=== PATIENT | female | born 1955 | race Caucasian/White ===

== ENCOUNTER 2016-04-16 04:26 | Inpatient (IN) | payer OTHER ==
[~2016-04-16] VITALS: Ht 165.1 cm; Wt 106.6 kg
[~2016-04-16 04:26] MED LIST: PROTONIX40 M3 PO; TOPAMAX100 M1 PO; TRIAMTERENE-HC1 EAC2 PO; VENLAFAXINE HC225 MG PO
--- NOTE | 2016-04-16 10:20 | Admission Core Measures ---
Admission Meds I reviewed the following Meds: Current Medications Sig/Caroline Start time Last Medication Dose Stop Time Status Admin Hydrochlorothiazide 50 MG DAILY 04/17 1000 CAN (Hydrodiuril) Topiramate 100 MG DAILY 04/17 1000 AC (Topamax) Venlafaxine HCl 225 MG 0800 04/17 0800 AC (Effexor Xr) Acute Coronary Syndrome Inclusion Criteria ACS Diagnosis No Inpatient Core Measures LDL Reminder: If No, please order W/I first 24hr of stay Congestive Heart Failure Inclusion Criteria CHF Diagnosis No Cerebrovascular accident Inclusion Criteria CVA/TIA Diagnosis No Inpatient Core Measures Bedside Swallow Eval Reminder: If BSE failed, place ST order Antithrombotic Reminder: Order Antithrombotic Medication by end of day 2 Antithrombotic Reminder: Document Reason Antithrombotic Not ordered by end of day 2 AFIB/Flutter Reminder: If Present, add to problem list AFIB/Flutter Reminder: Order Anticoag Medication for pts with AFIB/Flutter Atherosclerosis Reminder: If Present, add to problem list LDL Reminder: If No, please order W/I first 24hr of stay PT Order Reminder: If No, please order Venous thromboembolism Inpatient Core Measures VTE Risk Factors: Age > 40, Surgery VTE Prophylaxis Ordered Inpt Mech & Pharm No Mech VTE prophylaxis d/t No contraindications No VTE Pharm Prophylaxis d/t No contraindications Inclusion Criteria - Per Current guidelines, there needs to be overlap - treatment for the first 5 days of Warfarin therapy. - Parenteral Anticoagulation (IV or SC) needs to be - given along with Warfarin therapy. VTE Diagnosis No VTE Type NONE VTE Confirmed by (Test) NONE Problem List As ranked by this Provider includes Assessment & Plan 1. S/P total knee replacement HOME MEDS Home Med List Pantoprazole Sodium (Protonix) 40 MG TABLET.DR 1 TAB PO DAILY GI (Reported) Topiramate (Topamax) 100 MG TABLET 1 TAB PO DAILY MIGRAINES (Reported) Triamterene/Hydrochlorothiazid (Triamterene-Hctz 75-50 MG Tab) 75 MG-50 MG TABLET 1 TAB PO DAILY BP (Reported) Venlafaxine HCl (Venlafaxine HCl ER) 225 MG TAB.ER.24 1 TAB PO DAILY DEPRESSION (Reported)
[2016-04-16] MEDS ORDERED: COLACE100 M1 PO (10:26)
[2016-04-16] MEDS ORDERED: ASPIRIN EC325 M2 PO (10:26)
[2016-04-16] MEDS ORDERED: DILAUDID2 M1 PO (10:26)
[2016-04-16] MEDS ORDERED: MIRALAX17 G1 PO (10:26)
[2016-04-16] MEDS ORDERED: MS CONTIN15 M2 PO (10:26)
[2016-04-16] MEDS ORDERED: COUMADIN5 M2 PO (10:26)
--- NOTE | 2016-04-16 10:29 | Patient Discharge Instructions ---
Discharge Instructions General Discharge Information You were seen/treated for: knee pain You had these procedures: total knee replacement Watch for these problems: See pre printed sheet Do not soak the wound: Yes Other wound care: Clean, dry dressing change See pre printed sheet Diet Continue normal diet: Yes Activity Activity Self Limited: Yes Activity Limited to: Weight bear as tolerated Acute Coronary Syndrome Inclusion Criteria At DC or during hospital stay patient has or had the following: ACS DIAGNOSIS No Discharge Core Measures Meds if any: Prescribed or Continued at Discharge Meds if any: NOT Prescribed or Continued at Discharge Congestive Heart Failure Inclusion Criteria At DC or during hospital stay patient has or had the following: CHF DIAGNOSIS No Discharge Core Measures Meds if any: Prescribed or Continued at Discharge Meds if any: NOT Prescribed or Continued at Discharge Cerebrovascular accident Inclusion Criteria At DC or during hospital stay patient has or had the following: CVA/TIA Diagnosis No Discharge Core Measures Meds if any: Prescribed or Continued at Discharge Meds if any: NOT Prescribed or Continued at Discharge Venous thromboembolism Inclusion Criteria VTE Diagnosis No VTE Type NONE VTE Confirmed by (Test) NONE Discharge Core Measures - Per Current guidelines, there needs to be overlap - treatment for the first 5 days of Warfarin therapy. - If discharged on Warfarin prior to 5 days of - overlap therapy, the patient will need to be - assessed for post discharge needs including - *Post discharge parental anticoagulation - *Warfarin and/or parental anticoagulation education - *Follow up date to check INR post discharge At least 5 days overlap therapy as Inpatient No Meds if any: Prescribed or Continued at Discharge Note: Overlap Therapy is Warfarin and Anticoagulant Meds if any: NOT Prescribed or Continued at Discharge
--- NOTE | 2016-04-16 10:35 | Surgical Discharge Summary ---
Visit Information Visit Dates Admission Date: 04/16/16 Discharge Date: 04/18/16 History of Present Illness Chief Complaint: Knee pain Surgical History Pertinent Surgical History: non-contributory Review of Systems: See H and P Hospital Course Course Attending Physician: JJ JANSEN MD Primary Care Physician: TORY SAM,[facility] Course: Pt underwent L TKR by Dr Jansen on 04/16/16, she tolerated the procedure well and was brought to recovery in stable condition. Over the course of her stay, her garcía catheter was removed and she was voiding spontaneously, she was able to tolerated a regular diet, her pain was well controlled on oral medication and she was seen by Physical therapy. She was able to ambulate with PT - WBAT and was deemed stable for discharge. She was begun on coumadin on the day of surgery for DVT prophylaxis. She was also on an aspirin bridge 325mg po bid for one week while on coumadin. Her INR was increasing appropriately and her INR will be monitored as an outpatient - goal 2-3. Allergies: Coded Allergies: clarithromycin (From BIAXIN) (Intermediate, ITCH 04/11/16) Significant Procedures: L TKR - see op report Disposition Summary Disposition Principal Diagnosis: DJD Additional Diagnosis: depression, history of PE, HTN, migraines Discharge Disposition: home health services Discharge Instructions General Discharge Information Code Status: Full Code Patient's Diet: regular Patient's Activity: WBAT Follow-Up Instructions/Appts: Keep scheduled visit with Dr Jansen, call sooner if needed FU with PCP within 2 weeks, call for appt Medications at Discharge Discharge Medications: Continue taking these medications: Triamterene/Hydrochlorothiazid (Triamterene-Hctz 75-50 MG Tab) 75 MG-50 MG TABLET 1 Tablet ORAL DAILY Comments: DOCUMENTED PER CMR DURING PRE-SX INTERVIEW Pantoprazole Sodium (Protonix) 40 MG TABLET. 1 Tablet ORAL DAILY Comments: DOCUMENTED PER CMR DURING PRE-SX INTERVIEW Topiramate (Topamax) 100 MG TABLET 1 Tablet ORAL DAILY Comments: DOCUMENTED PER CMR DURING PRE-SX INTERVIEW Venlafaxine HCl (Venlafaxine HCl ER) 225 MG TAB.ER.24 1 Tablet ORAL DAILY Comments: DOCUMENTED PER CMR DURING PRE-SX INTERVIEW Start taking the following new medications: Aspirin (Ecotrin*) 325 MG TABLET. 1 Tablet ORAL TWICE DAILY Qty = 10 No Refills Instructions: TO BE TAKEN ALONG WITH COUMADIN FOR A TOTAL OF ONE WEEK AFTER SURGERY Docusate Sodium (Colace) 100 MG CAPSULE 1 Capsule ORAL TWICE DAILY Qty = 14 No Refills Polyethylene Glycol 3350 (Miralax) 17 GRAM POWD.PACK 1 Packet ORAL DAILY Qty = 7 No Refills Instructions: dissolve in water Hydromorphone HCl (Dilaudid) 2 MG TABLET 1-2 Tablet ORAL EVERY 4 HOURS NEEDED as needed for PAIN Qty = 36 No Refills Morphine Sulfate (Ms Contin) 15 MG TABLET.ER 1 Tablet ORAL TWICE DAILY Qty = 12 No Refills Warfarin Sodium (Coumadin) 5 MG TABLET 1 Tablet ORAL DAILY Qty = 30 No Refills Instructions: To be dosed according to INR. INR twice weekly until stable. Goal INR 2-3. Results to Dr Jansen office Copies To: TORY SAM,LES; INDERJIT SAM,JJ
--- NOTE | 2016-04-16 14:31 | Operative Report ---
Operative/Inv Procedure Report Surgery Date: 04/16/16 Name of Procedure: Left total knee replacement Pre-Operative Diagnosis: Primary left knee DJD Post-Operative Diagnosis: Same Estimated Blood Loss: 50ml to 100ml Surgeon/Astronomy Professor: INDERJIT SAM,JJ Coronel Anesthesia: block Operative/Procedure Note Note: Description of Procedure: The patient was taken to the operating room and positively identified. After induction of spinal anesthesia and administration of appropriate pre-operative antibiotics, the patient was positioned supine on the operating room table and all bony prominences were well padded. A well-padded pneumatic tourniquet was placed on the left upper thigh. After performing a surgical timeout, the left lower extremity was prepped and draped in the usual sterile fashion. After exsanguination with Esmarch the tourniquet was inflated to 250mm of mercury. A standard medial parapatellar approach was made to the knee. This was carried down through skin and subcutaneous tissue to the level of the fascia. Meticulous hemostasis was maintained with Bovie electrocautery. The extensor mechanism and patellar retinaculum were opened sharply and the patella was everted. The infrapatellar fat was resected in order to improve exposure. Osteophytes were trimmed from the patella and femoral condyles and the patella was re-everted and tucked laterally. A medial release was performed and the cruciate ligaments were resected. The tibia was then subluxed anteriorly. Utilizing the appropriate extra-medullary guide, the proximal tibia was trimmed perpendicular to the long axis of the tibial shaft. Attention was then turned to the femur. After opening the medullary canal, the distal femoral cut was made in 6 degrees of valgus utilizing the appropriate intra-medullary guide. The extension gap was checked and found to be appropriate. The femur was then sized and the remainder of the femoral cuts were made with a size 4 4-in-1 femoral cutting guide. The flexion gap was checked and found to be symmetric and appropriate. The knee was then trialed with a size 4 femoral component, a size 5 tibial component and a size 11 mm polyethylene insert. The patella was trimmed to accept an A 32 patella. This yielded excellent range of motion, stability and patellar tracking. All trial components were removed and the knee was copiously irrigated with sterile saline. All components were cemented into place with [place] Simplex cement. All the components were of the [place] Triathlon knee system of the above stated sizes. The knee was again irrigated after cementation. The extensor mechanism and patellar retinaculum were repaired using interrupted #1 vicryl suture. The skin was re-approximated with 2-0 vicryl and closed with ricco. A sterile dressing was applied, the tourniquet was deflated, the patient was awakened and taken to the recovery room in satisfactory condition.
--- NOTE | 2016-04-16 15:00 | NUR ---
PATIENT ARRIVED TO FLOOR VIA STRETCHER A/OX3; RA; NO COMPLAINTS OF PAIN OR NAUSEA; DRESSING TO L KNEE C/D/I; ON Q PUMP IN PLACE TO L ADDUCTOR CANAL; VITALS STABLE (SEE INTERVENTION); WILKINS IN PLACE DRAINING CLEAR YELLOW URINE; IVF PER ORDER; ALPS IN PLACE; SPOUSE AT BEDSIDE; BELONINGS BAGS X 2 PLACED IN CABINET UNDER TV; PATIENT REQUESTING GRILLED CHEESE FOR LUNCH WHICH WAS ORDERED; PATIENT ORIENTED TO ROOM AND CALL YADAV; REPORT GIVEN TO ONCOMING VALERIE BREWSTER;
--- NOTE | 2016-04-16 15:26 | PN- Orthopedic ---
Subjective Subjective: The patient was seen this afternoon postoperatively. She reports her pain is under adequate control and had no other complaints at the current time. She denied any chest pain or difficulty breathing and is eager to work with physical therapy. Objective Vital Signs and I&Os Most recent vital signs: Blood pressure 160/70, pulse 60, temperature 97.9, O2 sat drainage 98% on room air. I's and O's: 2000 ML's in of lactated Ringer's/340 ML's out of urine via Lundberg catheter/EBL less then 50ml Physical Exam: Gen.: Alert and in no obvious distress Skin: Warm and dry Cardiac: S1 and S2 regular Pulmonary: Bilateral breath sounds are equal and decreased at bases Extremities: Bilateral lower extremities are warm without calf tenderness or significant edema. Gross motor and sensory were intact. Left lower extremity surgical dressing was clean, dry, and intact. There was an On-Q pain pump [address] Assessment/Plan Assessment/Plan Assessment: 60-year-old female status post left total knee arthroplasty. Postoperatively the patient is progressing as expected and her pain is under adequate control. Plan: Out of bed with physical therapy patient is weightbearing as tolerated Patient will be started on a aspirin to Coumadin bridge starting 2 nights given history of PE in the past Continue current pain regiment 2 doses of prophylactic postoperative antibiotics GI and DVT prophylaxis Follow-up morning laboratory studies Resume home indications Core Measures/Miscellaneous Venous Thromboembolism VTE Risk Factors: Age > 40, Obesity, Previous VTE, Surgery VTE Contraindications: No Contraindications VTE Prophylaxis Ordered Inpt: Mech & Pharm VTE Diagnosis: No VTE Type: NONE VTE Confirmed by (Test): NONE Beta Socorro Is Beta Socorro a Home Med? No Antibiotics Is Patient on Antibiotics? Yes If Yes: prophylaxis
[2016-04-16 15:32] VITALS: BP 146/70
[2016-04-16 23:45] VITALS: BP 170/76
[2016-04-17] VITALS (8 sets, daily range): BP systolic 142–183; BP diastolic 74–80
[2016-04-17 07:55] LABS: ABSOLUTE BASOPHIL COUNT 0 /CUMM (0.0-0.2); ABSOLUTE EOSINOPHIL COUNT 0 /CUMM (0.0-0.7); ABSOLUTE GRANULOCYTE CT 7.2 /CUMM (1.4-6.5); ABSOLUTE LYMPH COUNT 0.7 /CUMM (1.2-3.4); ABSOLUTE MONOCYTE COUNT 0.5 /CUMM (0.10-0.60); BASOPHIL % 0 % (0.0-2.0); EOSINOPHIL % 0 % (0-5); GRANULOCYTE % 85.6 % (42.2-75.2); HEMATOCRIT 31.5 % (37-47); MEAN CORPUSCULAR HGB 29.1 PG (27.0-31.0); MEAN CORPUSCULAR HGB CONC 33.4 G/DL (33.0-37.0); MEAN CORPUSCULAR VOLUME 87.1 FL (81.0-99.0); MEAN PLATELET VOLUME 9.4 FL (7.4-10.4); PLATELET COUNT 149 /CUMM (130-400); RBC DISTRIBUTION WIDTH 14.4 % (11.5-14.5); RED BLOOD CELL CT 3.62 /CUMM (4.20-5.40); WHITE BLOOD CELL COUNT 8.4 /CUMM (4.8-10.8)
[2016-04-17 08:16] LABS: PT 12.4 SEC (9.4-12.5)
--- NOTE | 2016-04-17 08:30 | PN- Orthopedic ---
Subjective Subjective: POD#1 S/P LEFT TKA NO MAJOR COMPLAITNS THIS AM DENIES CP, SOB, NO N+V WITH DIET Objective Vital Signs and I&Os Vital Signs Date Time Temp Pulse Resp B/P Pulse O2 O2 Flow FiO2 Ox Delivery Rate 04/17 0702 98.6 68 18 142/80 97 Room Air 04/17 0258 97.9 60 18 174/74 97 Room Air 04/17 0121 98.4 60 19 170/78 95 Room Air 04/17 0010 160/80 04/16 2345 98.4 66 18 170/76 97 Room Air 04/16 1532 97.6 66 20 146/70 97 Room Air Intake & Output 04/17 1600 04/17 0800 04/17 0000 04/16 1600 04/16 0800 04/16 0000 Intake Total 720 950 Output Total 1000 400 Balance -280 550 Intake, IV 600 600 Intake, Oral 120 350 Output, Urine 1000 400 Physical Exam: CV: RRR LUNGS: CLEAR ABD: SOFT, +BS EXT: LEFT LE DISTAL CMS INTACT DRSG DRY ON Q IN PLACE Assessment/Plan Assessment/Plan ORTHO STABLE PLAN F/U AM LABS TITRATE COUMADIN FOR DVT PROPHYLAXIS OOB WITH PT, WBAT LEFT LE HOME D/C PLANNING Core Measures/Miscellaneous Venous Thromboembolism VTE Risk Factors: Age > 40, Obesity, Previous VTE, Surgery VTE Contraindications: No Contraindications VTE Prophylaxis Ordered Inpt: Mech & Pharm VTE Diagnosis: No VTE Type: NONE VTE Confirmed by (Test): NONE Beta Socorro Is Beta Socorro a Home Med? No Antibiotics Is Patient on Antibiotics? Yes If Yes: prophylaxis
--- NOTE | 2016-04-17 16:08 | NUR ---
INFORMED SX PALOMO CROOK, REGARDING PATIENT'S BP 183/75, AND NO VOIDING AT 1500. ? AWAITING NEW ORDER ON BP, AND WE WILL CONTINUE TO MONITOR PATIENT RE VOIDING.
--- NOTE | 2016-04-17 17:40 | NUR ---
PATIENT INCONTINENT OF MODERATE AMOUNT OF URINE AT APPROX 1715. CONTINUE TO MONITOR
--- NOTE | 2016-04-18 00:01 | NUR ---
PT MANUAL BLOOD PRESSURE 180/80. SURGICAL PA COURT CALLED AND MADE AWARE. NO FURTHER ORDERS GIVEN. WILL CONTINUE TO MONITOR.
[2016-04-18 00:02] VITALS: BP 180/80
--- NOTE | 2016-04-18 07:15 | PN- Orthopedic ---
Subjective Subjective: pod#2 s/p tka poor pain control, / denies cp, sob, no n+v with diet tolerating diet +bm Objective Vital Signs and I&Os Vital Signs Date Time Temp Pulse Resp B/P Pulse O2 O2 Flow FiO2 Ox Delivery Rate 04/18 0002 99.0 74 19 180/80 96 Room Air 04/17 1941 97.9 66 21 175/78 98 Room Air 04/17 1941 173/78 04/17 1620 98.5 63 18 183/75 98 04/17 1211 98.6 59 18 180/78 97 Room Air Intake & Output 04/18 0800 04/18 0000 04/17 1600 04/17 0800 04/17 0000 04/16 1600 Intake Total 240 1200 1920 720 950 Output Total 1000 400 Balance 240 1200 1920 -280 550 Intake, IV 600 600 Intake, Oral 240 1200 1920 120 350 Number 2 Bowel Movements Output, Urine 1000 400 Physical Exam: cv: rrr lungs: clear abd: soft, +bs ext: drsg changed, wound c/d/i distal cms intact no calf tenderness bilat Assessment/Plan Assessment/Plan pain issues plan add ms [id number] bid now titrate coumadin for inr 2-3 continue oob with pt home later today Core Measures/Miscellaneous Venous Thromboembolism VTE Risk Factors: Age > 40, Obesity, Previous VTE, Surgery VTE Contraindications: No Contraindications VTE Prophylaxis Ordered Inpt: Mech & Pharm VTE Diagnosis: No VTE Type: NONE VTE Confirmed by (Test): NONE Beta Socorro Is Beta Socorro a Home Med? No Antibiotics Is Patient on Antibiotics? Yes If Yes: prophylaxis
[2016-04-18 08:01] VITALS: BP 150/92
[2016-04-18 08:20] LABS: PT 20.3 SEC (9.4-12.5)
[2016-08-31] MEDS ORDERED: OXYBUTYNIN PO (14:12)
== END 2016-04-18 13:30 | disposition home health service (06) | DRG 470 ==
LOC: ENRESERVTM → ENRESERVDT → SDA 04:26 → 2NB 04:26 → ENPENDDIS 04:26 → 2NB 14:51
PROVIDERS: Physician Assistant; Physician Assistant Surgical; ADMIT Orthopaedic Surgery
PROC: 0SRD0J9 Replacement of Left Knee Joint with Synthetic Substitute, Cemented, Open Approach (ICD-10-PCS; principal; 2016-04-16)
DX: M17.12 Unilateral primary osteoarthritis, left knee (principal); I10 Essential (primary) hypertension; F32.9 Major depressive disorder, single episode, unspecified; G47.33 Obstructive sleep apnea (adult) (pediatric)
CPT/HCPCS: 2NBSP; 36415; 82436; 88305; 97110-GO; 97116-GO; 97161-GP; 97530-GO; C1713; J0690; J1885; J2405; J2795; J7042

== ENCOUNTER 2016-09-03 02:36 | Inpatient (IN) | payer OTHER ==
[~2016-09-03] VITALS: Ht 165.1 cm; Wt 109.3 kg
[~2016-09-03 02:36] MED LIST changes: +ASPIRIN EC325 M2 PO; +COLACE100 M1 PO; +COUMADIN5 M2 PO; +DILAUDID2 M1 PO; +MIRALAX17 G1 PO; +MS CONTIN15 M2 PO; +OXYBUTYNIN PO
[2016-09-03] MEDS ORDERED: OXYBUTYNIN CHLO10 M1 PO (09:45)
--- NOTE | 2016-09-03 11:15 | Admission Core Measures ---
Admission Meds I reviewed the following Meds: Current Medications Sig/Caroline Start time Last Medication Dose Stop Time Status Admin Acetaminophen 975 MG ONCE 09/03 0000 NR (Tylenol) 09/03 2358 Cefazolin Sodium 2,000 MG ONCE 09/03 NR (Kefzol-Ancef Inj) 09/03 2358 Hydrochlorothiazide 50 MG DAILY 09/03 1000 AC (Hydrodiuril) Oxybutynin Chloride 5 MG BID 09/03 1000 AC (Ditropan) Oxycodone HCl 10 MG ONCE 09/03 0000 AC (Roxicodone) 09/04 2358 Pantoprazole Sodium 40 MG DAILY 09/03 1000 AC (Protonix) Ropivacaine 500 ML ONCE ONE 09/03 1000 AC (NAROPIN) 09/05 033 ON-Q Ball 1 BAG Topiramate 100 MG DAILY 09/03 1000 AC (Topamax) Venlafaxine HCl 225 MG 0800 09/04 0800 AC (Effexor Xr) Acute Coronary Syndrome Inclusion Criteria ACS Diagnosis No Inpatient Core Measures LDL Reminder: If No, please order W/I first 24hr of stay Congestive Heart Failure Inclusion Criteria CHF Diagnosis No Cerebrovascular accident Inclusion Criteria CVA/TIA Diagnosis No Inpatient Core Measures Bedside Swallow Eval Reminder: If BSE failed, place ST order Antithrombotic Reminder: Order Antithrombotic Medication by end of day 2 Antithrombotic Reminder: Document Reason Antithrombotic Not ordered by end of day 2 AFIB/Flutter Reminder: If Present, add to problem list AFIB/Flutter Reminder: Order Anticoag Medication for pts with AFIB/Flutter Atherosclerosis Reminder: If Present, add to problem list LDL Reminder: If No, please order W/I first 24hr of stay PT Order Reminder: If No, please order Venous thromboembolism Inpatient Core Measures VTE Risk Factors: Age > 40, Surgery No [facility] VTE prophylaxis d/t No contraindications No VTE Pharm Prophylaxis d/t No contraindications Inclusion Criteria - Per Current guidelines, there needs to be overlap - treatment for the first 5 days of Warfarin therapy. - Parenteral Anticoagulation (IV or SC) needs to be - given along with Warfarin therapy. VTE Diagnosis No VTE Type NONE VTE Confirmed by (Test) NONE Problem List As ranked by this Provider includes Assessment & Plan 1. Unilateral primary osteoarthritis, right knee HOME MEDS Home Med List [OXYBUTYNIN] 20 MG TAB 1 TAB PO DAILY bladder health (Reported) Oxybutynin Chloride (Oxybutynin Chloride ER) 10 MG TAB.ER.24 1 TAB PO DAILY INCONTINENCE (Reported) Pantoprazole Sodium (Protonix) 40 MG TABLET.DR 1 TAB PO DAILY GI (Reported) Topiramate (Topamax) 100 MG TABLET 1 TAB PO DAILY MIGRAINES (Reported) Triamterene/Hydrochlorothiazid (Triamterene-Hctz 75-50 MG Tab) 75 MG-50 MG TABLET 1 TAB PO DAILY BP (Reported) Venlafaxine HCl (Venlafaxine HCl ER) 225 MG TAB.ER.24 1 TAB PO DAILY DEPRESSION (Reported)
[2016-09-03] MEDS ORDERED: ELIQUIS2.5 M1 PO (11:17)
[2016-09-03] MEDS ORDERED: DILAUDID2 M1 PO (11:17)
[2016-09-03] MEDS ORDERED: MIRALAX17 G1 PO (11:17)
[2016-09-03] MEDS ORDERED: MS CONTIN15 M2 PO (11:17)
[2016-09-03] MEDS ORDERED: COLACE100 M1 PO (11:17)
--- NOTE | 2016-09-03 11:24 | Patient Discharge Instructions ---
Discharge Instructions General Discharge Information You were seen/treated for: Right knee pain related to unilateral primary osteoarthritis You had these procedures: Right total knee replacement Watch for these problems: Increasing pain despite the use of pain medication. Increasing redness, warmth, swelling. Drainage of any type from incision. Inability to bear weight on operative leg. Persistent nausea and vomitting. Fever greater than 101.5 degrees Do not soak the wound: Yes No bath, but you may shower: Yes Other wound care: No ointment of any type on or near incision at any time. No exceptions. Keep wound clean and dry. Dressing will be changed on the second day post operatively. Daily dry dressing changes recommended thereafter. Special Instructions: Constipation: Pain medication can be very constipating. Please take colace and miralax as directed to ensure that you are moving your bowels. You may discontinue this medication if you develop diarrhea. If you are unable to move your bowels for several days or if you are unable to pass gas, please contact your doctor. patient should f/u with pcp within a week for f/u ekg and electrolyte blod work. f/u cardiac stress test as an outpatient should be arranged by pcp Diet Continue normal diet: Yes Recommended Diet: Regular Activity Full Activity/No Limits: No Activity Self Limited: Yes Pounds, do NOT lift more than: 10 Activity Limited to: Weight bear as tolerated Acute Coronary Syndrome Inclusion Criteria At DC or during hospital stay patient has or had the following: ACS DIAGNOSIS No Discharge Core Measures Meds if any: Prescribed or Continued at Discharge Meds if any: NOT Prescribed or Continued at Discharge Congestive Heart Failure Inclusion Criteria At DC or during hospital stay patient has or had the following: CHF DIAGNOSIS No Discharge Core Measures Meds if any: Prescribed or Continued at Discharge Meds if any: NOT Prescribed or Continued at Discharge Cerebrovascular accident Inclusion Criteria At DC or during hospital stay patient has or had the following: CVA/TIA Diagnosis No Discharge Core Measures Meds if any: Prescribed or Continued at Discharge Meds if any: NOT Prescribed or Continued at Discharge Venous thromboembolism Inclusion Criteria VTE Diagnosis No VTE Type NONE VTE Confirmed by (Test) NONE Discharge Core Measures - Per Current guidelines, there needs to be overlap - treatment for the first 5 days of Warfarin therapy. - If discharged on Warfarin prior to 5 days of - overlap therapy, the patient will need to be - assessed for post discharge needs including - *Post discharge parental anticoagulation - *Warfarin and/or parental anticoagulation education - *Follow up date to check INR post discharge At least 5 days overlap therapy as Inpatient No Meds if any: Prescribed or Continued at Discharge Note: Overlap Therapy is Warfarin and Anticoagulant Meds if any: NOT Prescribed or Continued at Discharge
--- NOTE | 2016-09-03 11:25 | Surgical Discharge Summary ---
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 Spouse Services at Home: None What is Your Primary Language? Arabic Review of Systems: wn Hospital Course Course Attending Physician: JJ JANSEN MD Primary Care Physician: TORY SAM,[facility] Course: Patient was admitted to the hospital for an elective total joint replacement. Procedure was tolerated well and patient was transferred to a general surgical floor. However on post op day 1 she became hypotensive with ambulation which responded to fluid bolus but she developed elevated troponins. she did not c/o chest pain and cardiac consultation with dr pacheco was negative for ischemic event. she was cleared by cardiology on 09/07/16 for d/c from a cardiac standpoint. Diet was advanced and tolerated and patient voided spontaneously. PT evaluated and treated. At time of discharge, vital signs were stable and within normal limits, neurovascular status was intact, and pain was controlled with oral pain medications. Allergies: Coded Allergies: clarithromycin (From BIAXIN) (Intermediate, ITCH 04/11/16) Disposition Summary Disposition Principal Diagnosis: Right knee unilateral primary osteoarthritis Additional Diagnosis: none Discharge Disposition: home health services Discharge Instructions General Discharge Information Code Status: Full Code Patient's Diet: Regular, advance as tolerated Patient's Activity: wbat Follow-Up Instructions/Appts: Follow up with Dr. Jansen in 6 weeks from date of surgery. Call office to arrange or confirm this appointment. Medications at Discharge Discharge Medications: Continue taking these medications: Triamterene/Hydrochlorothiazid (Triamterene-Hctz 75-50 MG Tab) 75 MG-50 MG TABLET 1 Tablet ORAL DAILY Comments: Last Taken: 09/07/16 Time: 9:00 AM Pantoprazole Sodium (Protonix) 40 MG TABLET. 1 Tablet ORAL DAILY Comments: PRILOSEC GIVEN IN HOSPITAL Last Taken: 09/07/16 Time: 6:00 AM Topiramate (Topamax) 100 MG TABLET 1 Tablet ORAL DAILY Comments: Last Taken: 09/07/16 Time: 9:00 AM Venlafaxine HCl (Venlafaxine HCl ER) 225 MG TAB.ER.24 1 Tablet ORAL DAILY Comments: Last Taken: 09/07/16 Time: 8:00 AM Oxybutynin Chloride (Oxybutynin Chloride ER) 10 MG TAB.ER.24 1 Tablet ORAL DAILY Comments: Last Taken: 09/07/16 Time: 9:00 AM Start taking the following new medications: Apixaban (Eliquis) 2.5 MG TABLET 1 Tablet ORAL TWICE DAILY Qty = 60 No Refills Comments: Last Taken: 09/07/16 Time: 9:00 AM Docusate Sodium (Colace) 100 MG CAPSULE 1 Capsule ORAL TWICE DAILY Qty = 14 No Refills Instructions: DISCONTINUE USE IF YOU DEVELOP LOOSE STOOL OR DIARRHEA Comments: Last Taken: 09/07/16 Time: 9:00 AM Hydromorphone HCl (Dilaudid) 2 MG TABLET 1-2 Tablet ORAL EVERY 4-6 HOURS as needed for PAIN Qty = 36 No Refills Comments: Last Taken: 09/07/16 Time: 6:45 AM Polyethylene Glycol 3350 (Miralax) 17 GRAM POWD.PACK 1 Packet ORAL DAILY Qty = 7 No Refills Instructions: dissolve in water, DISCONTINUE USE IF YOU DEVELOP LOOSE STOOL OR DIARRHEA Comments: Last Taken: 09/05/16 Time: 10:00 AM Morphine Sulfate (Ms Contin) 15 MG TABLET.ER 1 Tablet ORAL TWICE DAILY Qty = 6 No Refills Comments: DID NOT RECEIVE IN HOSPITAL
--- NOTE | 2016-09-03 14:46 | Operative Report ---
Operative/Inv Procedure Report Surgery Date: 09/03/16 Name of Procedure: Right total knee replacement Pre-Operative Diagnosis: Primary right knee DJD Post-Operative Diagnosis: Same Estimated Blood Loss: 50ml to 100ml Surgeon/Front Elevator Operator: INDERJIT SAM,JJ Coronel Anesthesia: block Operative/Procedure Note Note: Description of Procedure: The patient was taken to the operating room and positively identified. After induction of spinal anesthesia and administration of appropriate pre-operative antibiotics, the patient was positioned supine on the operating room table and all bony prominences were well padded. A well-padded pneumatic tourniquet was placed on the right upper thigh. After performing a surgical timeout, the right lower extremity was prepped and draped in the usual sterile fashion. After exsanguination with Esmarch the tourniquet was inflated to 250mm of mercury. A standard medial parapatellar approach was made to the knee. This was carried down through skin and subcutaneous tissue to the level of the fascia. Meticulous hemostasis was maintained with Bovie electrocautery. The extensor mechanism and patellar retinaculum were opened sharply and the patella was everted. The infrapatellar fat was resected in order to improve exposure. Osteophytes were trimmed from the patella and femoral condyles and the patella was re-everted and tucked laterally. A medial release was performed and the cruciate ligaments were resected. The tibia was then subluxed anteriorly. Utilizing the appropriate extra-medullary guide, the proximal tibia was trimmed perpendicular to the long axis of the tibial shaft. Attention was then turned to the femur. After opening the medullary canal, the distal femoral cut was made in 6 degrees of valgus utilizing the appropriate intra-medullary guide. The extension gap was checked and found to be appropriate. The femur was then sized and the remainder of the femoral cuts were made with a size 4 4-in-1 femoral cutting guide. The flexion gap was checked and found to be symmetric and appropriate. The knee was then trialed with a size 4 femoral component, a size 5 tibial component and a size 13 mm polyethylene insert. The patella was trimmed to accept an A 32 patella. This yielded excellent range of motion, stability and patellar tracking. All trial components were removed and the knee was copiously irrigated with sterile saline. All components were cemented into place with Boone Simplex cement. All the components were of the Dinorah Triathlon knee system of the above stated sizes. The knee was again irrigated after cementation. The extensor mechanism and patellar retinaculum were repaired using interrupted #1 vicryl suture. The skin was re-approximated with 2-0 vicryl and closed with ricco. A sterile dressing was applied, the tourniquet was deflated, the patient was awakened and taken to the recovery room in satisfactory condition.
--- NOTE | 2016-09-03 16:15 | PN- Orthopedic ---
Subjective Subjective: POC S/P RIGHT TKA NO MAJOR COMPLAINTS AT THIS TIME DENIES CP, SOB, NO N+V ONQ IN PLACE Objective Vital Signs and I&Os STABLE Physical Exam: CV: RRR LUNGS: CLEAR ABD: SOFT, +BS EXT: DRSG DRY DISTAL CMS INTACT BILAT N CALF TENDERNESS Assessment/Plan Assessment/Plan ORTHO STABLE PLAN OOB WITH PT IN AM TITRATE PAIN MEDS D/C IVF WHEN TL PO'S ELIQUIS FOR DVT PROPHYLAXIS HOME D/C PLAN Core Measures/Miscellaneous Venous Thromboembolism VTE Risk Factors: Age > 40, Surgery VTE Contraindications: No Contraindications VTE Diagnosis: No VTE Type: NONE VTE Confirmed by (Test): NONE Beta Socorro Is Beta Socorro a Home Med? No Antibiotics Is Patient on Antibiotics? Yes If Yes: prophylaxis
[2016-09-03 18:13] VITALS: BP 150/86
[2016-09-03 20:45] VITALS: BP 138/62
[2016-09-03 22:53] VITALS: BP 138/56
[2016-09-04] VITALS (12 sets, daily range): BP systolic 98–182; BP diastolic 40–90
--- NOTE | 2016-09-04 07:31 | PN- Orthopedic ---
Subjective Subjective: POD#1 S/P RIGHT TKA NO MAJOR ISSUES OVERNIGHT DENIES CP, SOB, NO N+V WITH DIET WILKINS D/C'D AT 6AM Objective Vital Signs and I&Os Vital Signs Date Time Temp Pulse Resp B/P B/P Pulse O2 O2 Flow FiO2 Mean Ox Delivery Rate /06 0722 97.8 58 18 152/65 98 Room Air 06/06 0400 97.6 57 18 155/67 97 Room Air 06/06 0346 97.6 57 20 155/67 97 Room Air 06/05 2253 97.7 57 18 138/56 97 Room Air 06/05 2148 Room Air 06/ 2045 97.7 60 20 138/62 98 Room Air 06/05 1813 97.8 69 20 150/86 97 Room Air / 1719 96 Room Air Intake & Output /06 0800 06/06 0000 06/05 1600 06/05 0800 06/05 0000 06/04 1600 Intake Total 840 Output Total Balance 840 Intake, IV 600 Intake, Oral 240 Patient 242 lb Weight Physical Exam: CV: RRR LUNGS: CLEAR ABD: SOFT, +BS EXT: DSG DRY N CALF TENDERNESS BILAT DISTAL CMS INTACT Assessment/Plan Assessment/Plan ORTHO STABLE PLAN DTV @NOON OOB WITH PT ELIQUIS BID FOR DVT PROPHYLAXIS HOME D/C PLANNING Core Measures/Miscellaneous Venous Thromboembolism VTE Risk Factors: Age > 40, Surgery VTE Contraindications: No Contraindications VTE Diagnosis: No VTE Type: NONE VTE Confirmed by (Test): NONE Beta Socorro Is Beta Socorro a Home Med? No Antibiotics Is Patient on Antibiotics? Yes If Yes: prophylaxis
[2016-09-04 08:36] LABS: ABSOLUTE BASOPHIL COUNT 0 /CUMM (0.0-0.2); ABSOLUTE EOSINOPHIL COUNT 0 /CUMM (0.0-0.7); ABSOLUTE GRANULOCYTE CT 6.8 /CUMM (1.4-6.5); ABSOLUTE MONOCYTE COUNT 0.5 /CUMM (0.10-0.60); BASOPHIL % 0.1 % (0.0-2.0); EOSINOPHIL % 0 % (0-5); GRANULOCYTE % 81.5 % (42.2-75.2); HEMATOCRIT 30.4 % (37-47); MEAN CORPUSCULAR HGB 27.5 PG (27.0-31.0); MEAN CORPUSCULAR HGB CONC 33.2 G/DL (33.0-37.0); MEAN CORPUSCULAR VOLUME 82.9 FL (81.0-99.0); MEAN PLATELET VOLUME 9.5 FL (7.4-10.4); PLATELET COUNT 165 /CUMM (130-400); RBC DISTRIBUTION WIDTH 15.1 % (11.5-14.5); RED BLOOD CELL CT 3.66 /CUMM (4.20-5.40); WHITE BLOOD CELL COUNT 8.4 /CUMM (4.8-10.8)
--- NOTE | 2016-09-04 09:26 | Event Note ---
Event Note Event Note: Rapid response called for dizziness when up with PT. She was placed into a recliner chair by PT and the nurse Angelica, and felt better sitting in a reclined position. Vitals: bp 98/40 p 48 rr 16 99% ra, fsg 159 labs reviewed, showing increase from baseline of her bun/cr and mild hypokalemia will obtain ekg add on labs, including mag and troponin replete k bolus NS 1 liter and continue ivf @ 125 mls/hr hold maxide for now (home med, not yet given) will d/w
--- NOTE | 2016-09-04 09:30 | NUR ---
NURSING NOTE: 904; RN CALLED INTO ROOM BY PHYSICAL THERAPY, PT NOTED TO BE SITTING IN CHAIR, BP 110/60, HR 52. PT C/O "WOOZY AND LIGHTHEADED." Vonnie CULVER OUTSIDE THE ROOM AND MADE AWARE. 0910AM; P.T STOOD PT UP TO TAKE CHAIR OUT FROM UNDER HER, RECLINER PLACED UNDER PT; PT CLOSED EYES AND SAT BACK IN RECLINER, BP 98/40, HR 48, RAPID RESPONSE CALLED. FSG 159. 0915AM NORMAL SALINE 500ML BOLUS HUNG PER MD ORDER. PT TEARFUL STATES "IM SORRY IM CAUSING TROUBLE, IM OK I DONT NEED ALL THESE PEOPLE." 0930AM NS 500ML BOLUS COMPLETED BP 126/70, HR 50. MST ATTEMPTING TO DO EKG, SAFETY MAINTAINED, CHAIR ALARM IN PLACE
--- NOTE | 2016-09-04 10:13 | NUR ---
NURSING NOTE: EKG DONE BY MST AT THIS TIME; BOTH EKG MACHINES HAD NO CONNECTION; [employer] [facility] CALLED, EKG SHOWN TO Vonnie CULVER, NO FURTHER ORDERS AT THIS TIME, PT ASSISTED BACK TO BED WITH RW/ASSIST X2, NO COMPLAINTS, SITTING IN BED, REFUSING BED ALARM, DENIES DIZZINESS OR COMPLAINTS,
--- NOTE | 2016-09-04 13:27 | NUR ---
NURSING NOTE: ON Q INCREASED TO 14ML/HR BY ANESTHESIA AT THIS FABIAN 2ND 2MG TABLET GIVEN TO PT AT THIS TIME TO EQUAL 4MG PO DOSE,Vonnie CULVER AWARE. ICE IN PLACE, NEEDS IN REACH, AT BEDSIDE
--- NOTE | 2016-09-04 14:22 | NUR ---
PHYSICAL THERAPY- ATTEMPTED TO SEE PT THIS PM; PT REFUSED, CITING "TERRIBLE R KNEE PAIN" DESPITE PREMEDICATION BY NSG. RN TO MEDICATE FURTHER AND ANESTHESIA WILL BE UP TO INCREASE ON-Q RATE. WILL FOLLOW APPROPRIATE.
--- NOTE | 2016-09-04 14:24 | NUR ---
NURSING NOTE: BP 182/70, HR 66, J MIRTA CULVER CALLED AND MADE AWARE, IVF DCD. PT DENIES DISTRESS, RESTING COMFORTABLY IN BED AT THIS TIME.
[2016-09-05] VITALS (8 sets, daily range): BP systolic 100–200; BP diastolic 70–88
--- NOTE | 2016-09-05 00:23 | NUR ---
ALERT AND ORIENTED X 3. ON ROOM AIR. DENIES SHORTNESS OF BREATH SURGICAL PA AWARE OF 8PM BLOOD PRESSURE. OTHER VSS. DENIES CHEST PAIN. + PULSES. DENIES NUMBNESS/TINGLING. SKIN C/D/I MEDICATION GIVEN FOR DISCOMFORT. PATIENT RESTING AT THIS TIME
[2016-09-05 07:41] LABS: ABSOLUTE BASOPHIL COUNT 0 /CUMM (0.0-0.2); ABSOLUTE EOSINOPHIL COUNT 0 /CUMM (0.0-0.7); ABSOLUTE GRANULOCYTE CT 7.9 /CUMM (1.4-6.5); ABSOLUTE LYMPH COUNT 0.9 /CUMM (1.2-3.4); ABSOLUTE MONOCYTE COUNT 0.8 /CUMM (0.10-0.60); BASOPHIL % 0 % (0.0-2.0); EOSINOPHIL % 0 % (0-5); MEAN CORPUSCULAR HGB 27.1 PG (27.0-31.0); MEAN CORPUSCULAR VOLUME 82.3 FL (81.0-99.0); MEAN PLATELET VOLUME 9.5 FL (7.4-10.4); PLATELET COUNT 180 /CUMM (130-400); RBC DISTRIBUTION WIDTH 15.3 % (11.5-14.5); RED BLOOD CELL CT 4.01 /CUMM (4.20-5.40); WHITE BLOOD CELL COUNT 9.6 /CUMM (4.8-10.8)
--- NOTE | 2016-09-05 08:57 | NUR ---
NURSING NOTE: SHASTA CULVER 416 MADE AWARE OF BP 166/84, HR 78. DIAZIDE DCD AFTER YESTERDAYS RAPID RESPONSE, SHASTA TO COME ROUND ON HER SHORTLY, PT DENIES DISTRESS.
--- NOTE | 2016-09-05 10:19 | PN- Orthopedic ---
Subjective Subjective: Reports an episode of urinary incontinence overnight, states that it is her baseline, but it did require a dressing change. Pain is tolerable at this time, but she has not ambulated this am. She did have a rapid responce when ambulating yesterday, she states that she felt dizzy. She was noted to by hypotensive at that time. She states that her symptoms have resolved. She anticipates ambulating today. She is not anticipating disharge today. She denies chest pain, shortness of breath and difficulty breathing. She denies nausea and vomitting. She is tolerating her diet well. Objective Vital Signs and I&Os Vital Signs Date Time Temp Pulse Resp B/P B/P Pulse O2 O2 Flow FiO2 Mean Ox Delivery Rate 09/05 0735 98.1 78 18 166/84 93 Room Air 09/04 2200 98.8 71 19 160/90 99 Room Air 09/04 2009 99.0 68 20 176/90 93 Room Air 09/04 1630 98.7 65 18 160/90 97 Room Air 09/04 1431 98.3 66 18 182/69 97 Room Air 09/04 1415 66 182/70 09/04 1033 97.5 54 20 126/70 96 Room Air Intake & Output 09/05 1600 09/05 0800 / 0000 09/04 1600 09/04 0800 09/04 0000 Intake Total 564 596 3717 1300 840 Output Total 107 985 1101 Balance -892 215 7514 -700 840 Intake, IV 1325 700 600 Intake, Oral 272 764 6453 600 240 Number 0 Bowel Movements Output, Urine 842 479 2164 Patient 242 lb Weight Physical Exam: General: Alert and oriented x3, no acute distress Cardiac: RRR, s1s2 Pulm: Non-labored respiratory effort, cta Abdomen: Non-distended Extremities: Moves all extremities, neurovascular status intact. Skin dry. Calves soft and non-tender bilaterally. Surgical site: Right knee. Dressing changed. Skin edges well approximated. Mild erythema noted medial to central aspect of incision. No drainage. Clean dry dressing reapplied. Assessment/Plan Assessment/Plan This is a 61 year old female with pmh of hypertension and urinary incontinence. Was hypotensive yeseterday and home bp med held. Is hypertensive today and asymptomatic. -Restart diazide today -OOB with PT, ambulate, stairs -Continue diet as tolerated -Continue eliquis bid 2.5 for 3 weeks -Anticipate dc to home tomorrow -Will d/w Dr. Muniz Core Measures/Miscellaneous Venous Thromboembolism VTE Risk Factors: Age > 40, Surgery VTE Contraindications: No Contraindications VTE Diagnosis: No VTE Type: NONE VTE Confirmed by (Test): NONE Beta Socorro Is Beta Socorro a Home Med? No Antibiotics Is Patient on Antibiotics? Yes If Yes: prophylaxis
--- NOTE | 2016-09-05 14:12 | NUR ---
NURSING NOTE: BP 174/80, HR 70. SHASTA CULVER CALLED AND MADE AWARE, PT DENIES DISTRESS, DIAZIDE GIVEN AT 1237PM WHEN RECEIVED FROM [facility]. RECHECK BP IN 2 HOURS PER SHASTA CULVER. WILL INFORM NEXT SHIFT RN.
--- NOTE | 2016-09-05 22:19 | NUR ---
NURSE NOTE: PT BP 198/82, HEART RATE OF 65. SURGICAL PA AWARE, PER PA WILL ORDER MED STAT. WILL MEDICATE AND MONITOR. WILLOW CHEST PAIN, PALPS.
--- NOTE | 2016-09-06 00:08 | NUR ---
NURSE NOTE: PT MEDICATED WITH AMLODIPINE, WILL RECHECK AFTER AN HOUR OF TAKING IT.
--- NOTE | 2016-09-06 00:37 | Cons- Medical ---
TANISHAELIZABETHELLIE 09/06/16 0036: General Information and HPI Consulting Request Date of Consult: 09/06/16 Requested By: JJ JANSEN MD Reason for Consult: High Blood pressure Source of Information: patient Exam Limitations: no limitations History of Present Illness: This is a 61 years old lady with past medical history significant for hypertension, migraine, depression, GERD who is status post right total knee replacement on September 03 and we were consulted to address her uncontrolled blood pressure. One day post procedure on September 04 the patient was dizzy and was found to be hypotensive with systolic of 90 because of which he received bolus IV fluids and her blood pressure medications were put on hold. This patient is on triamterene HCTZ 75/50 which she reports to has been taking for the past 12 years and blood pressure is always controlled with systolic of 130 to 140. Patient denies any chest pain, shortness of breath, palpitation, dizziness, lightheadedness. She volunteers that her pain on the operated knee has not been well controlled experiencing significant pain especially when she moves it which case is very high. Patient highest blood pressure was recorded as 200/88, Prior to seeing the patient she was given one-time dose of 5 mg amlodipine and the blood pressure came down nicely to 164/72. Allergies/Medications Allergies: Coded Allergies: clarithromycin (From BIAXIN) (Intermediate, ITCH 04/11/16) Home Med List: Apixaban (Eliquis) 2.5 MG TABLET 1 TAB PO BID ANTICOAGULATION Docusate Sodium (Colace) 100 MG CAPSULE 1 CAP PO BID CONSITPATION DISCONTINUE USE IF YOU DEVELOP LOOSE STOOL OR DIARRHEA Hydromorphone HCl (Dilaudid) 2 MG TABLET 1-2 TAB PO Q4-6 PRN PAIN Morphine Sulfate (Ms Contin) 15 MG TABLET.ER 1 TAB PO BID PAIN Oxybutynin Chloride (Oxybutynin Chloride ER) 10 MG TAB.ER.24 1 TAB PO DAILY INCONTINENCE (Reported) Pantoprazole Sodium (Protonix) 40 MG TABLET.DR 1 TAB PO DAILY GI (Reported) Polyethylene Glycol 3350 (Miralax) 17 GRAM POWD.PACK 1 PAC PO DAILY CONSTIPATION dissolve in water, DISCONTINUE USE IF YOU DEVELOP LOOSE STOOL OR DIARRHEA Topiramate (Topamax) 100 MG TABLET 1 TAB PO DAILY MIGRAINES (Reported) Triamterene/Hydrochlorothiazid (Triamterene-Hctz 75-50 MG Tab) 75 MG-50 MG TABLET 1 TAB PO DAILY BP (Reported) Venlafaxine HCl (Venlafaxine HCl ER) 225 MG TAB.ER.24 1 TAB PO DAILY DEPRESSION (Reported) Review of Systems Review of Systems Constitutional: Denies: chills, fever. EENTM: Denies: no symptoms. Cardiovascular: Denies: chest pain, palpitations. Respiratory: Denies: cough, short of breath. GI: Denies: abdominal pain, nausea, vomiting. Genitourinary: Denies: no symptoms. Musculoskeletal: Reports: see HPI. 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 Home Services at Home: None Smoking Status: Former Smoker Exam & Diagnostic Data Last 24 Hrs of Vital Signs/I&O Vital Signs Date Time Temp Pulse Resp B/P B/P Pulse O2 O2 Flow FiO2 Mean Ox Delivery Rate 09/06 0225 156/74 /08 0045 164/72 06/07 2324 65 190/82 06/07 2308 190/82 /07 2243 98.0 65 18 200/88 95 06/07 2221 65 198/82 06/07 1715 152/82 06/07 1431 98.7 71 18 174/80 93 Room Air / 1412 70 174/80 / 1238 68 150/70 /07 0735 98.1 78 18 166/84 93 Room Air Intake & Output 09/06 0800 06/08 0000 06/07 1600 Intake Total 480 920 Output Total 400 675 Balance -400 480 245 Intake, IV 20 Intake, Oral 480 900 Number 0 Bowel Movements Output, Urine 400 675 Physical Exam General Appearance: no apparent distress, alert, awake, obese Head: atraumatic, normal appearance Eyes: Bilateral: normal appearance, PERRL. Neck: supple Respiratory: normal breath sounds, chest non-tender, no respiratory distress Cardiovascular: regular rate/rhythm (EXTRA BEAT) Gastrointestinal: normal bowel sounds, soft, non-tender Extremities: normal inspection, normal capillary refill, Right knee warpped post procedure Last 24 Hrs of Labs/Marcus: Laboratory Tests 09/06/16 0100: Anion Gap 13, Estimated GFR 56 L, BUN/Creatinine Ratio 17.0, Magnesium 1.6, Troponin I 0.19 *H 09/05/16 0640: Anion Gap 11, Estimated GFR > 60, BUN/Creatinine Ratio 16.7, Magnesium 1.4 L, CBC w Diff NO MAN DIFF REQ, RBC 4.01 L, MCV 82.3, MCH 27.1, RDW 15.3 H, MPV 9.5, Gran % 82.0 H, Lymphocytes % 9.6 L, Monocytes % 8.4, Eosinophils % 0, Basophils % 0 L, Absolute Granulocytes 7.9 H, Absolute Lymphocytes 0.9 L, Absolute Monocytes 0.8 H, Absolute Eosinophils 0, Absolute Basophils 0, PUBS MCHC 33.0 Diagnostic Data EKG Results Sinus rhythm 64 bpm, irregular, normal axis no ST-T wave changes, QTC 483 Assessment/Plan Assessment/Plan This is a 61 years old lady with past medical history of hypertension presenting with asymptomatic uncontrolled hypertension systolic up to 200 mmHg that responded well to an additional dose of amlodipine. Currently the patient home dose of triamterene HCTZ has been doubled to 2 capsules. Patient denied any chest pain palpitation or shortness of breath however on the workup was found to have elevated troponin of 0.19. EKG showed an ectopic beat but is sinus rhythm. Problem list Hypertension Elevated troponin Plan Transfer the patient to telemetry floor Troponin and EKG every 6 hours to the [facility] [place]/start going down Aspirin 325 mg stat Echocardiogram to assess for cardiac strain Cardiology consult a.m. Lipid panel TSH and T4 Continue with triamterene HCTZ 75/50 2 capsules and consider reducing to 1 capsule home dose with further control of blood pressure Adequate pain control Problem List: 1. Hypertension 2. Elevated troponin Consult Acknowledgment - Thank you for your consult request. CHELSEY SAM, [facility] 09/06/16 0606: Assessment/Plan Consult Acknowledgment - Thank you for your consult request. Attending Review Statement Attending Statement Attending Statement: examined this patient, discuss w/resident/PA/MOVERS, agreed w/resident/PA/MOVERS Attending Assessment/Plan: 61 yo morbidly obese F with h/o HTN, migraine, GERD, PE s/p IVC filter, OA, JUVE, is POD2 post right total knee replacement. Medicine being consulted for hypertension. Patient takes triamterene/HCTZ 75/50 one daily for HTN, previously she was on two tabs daily. Post surgery on September 04, patient was ambulated and soon after she sat down on the chair, a rapid response was called as she felt dizzy, noted to have BP 98/40. Orthos were 110/60 --> 98/40. Her BP med was held and she was given IV fluids. Her BP med was eventually restarted on September 05, however over the course of the day her BP kept increasing despite home anti- hypertensive med being resumed. Surgical PA spoke with me and I had advised a one time dose of Amlodipine (prior to my evaluation of patient), BP improved from 200/88 to 156/74. Patient reports she was in incredible pain on ambulation or slight movement. She denies chest pain, dyspnea, lightheadedness, nausea, diaphoresis or palpitations. She remains asymptomatic. Denies previous cardiac history. Heart exam remarkable for a systolic murmur EKG was sinus rhythm with a few PAC's and nonspecific T wave changes. Labs revealed K 3.1, Mag 1.6 and troponin elevated at 0.19. Of note, her troponin on September 04 was negative. We have transferred patient to Telemetry floor, monitor for arrhythmias, trend EKG and troponin, aspirin 325 mg followed 81 mg daily, obtain Echo and Cardio consult. Check lipid panel, TSH, free T4, HbA1c. Will continue triamterene-HCTZ 2 caps daily for now. Add amlodipine 5 mg daily. Replete electrolytes to keep K > 4.0 and Mag > 2.0. Adequate pain control with opiates. DVT prophylaxis with eliquis. Full code.
[2016-09-06 00:45] VITALS: BP 164/72
--- NOTE | 2016-09-06 00:50 | NUR ---
NURSE NOTE: BP 164/72, SURGICAL PA AWARE. MEDICAL ALSO ON BOARD. PER MOD ORDER DRAW TROP/LYTES AND EKG. THEN DECEIDE TO TRANSFER PATIENT OR NOT.
[2016-09-06 02:25] VITALS: BP 156/74
--- NOTE | 2016-09-06 02:59 | NUR ---
NURSE NOTE: PT JETT UMANA, 0.19. MADE AWARE. AT THIS TIME ORDER TO TRANSFER TO TELEMETRY WAS MADE.REPORT GIVEN TO JOSIE IN ICU.
[2016-09-06 03:15] VITALS: BP 160/84
--- NOTE | 2016-09-06 04:40 | NUR ---
TRANSFER NOTE- Patient to ICU as tele hold for HTN and +troponin. Patient arrives to room on monitoring coordinator with RN and MD. Patient able to ambulate to new bed with stand-by assistance, pain score of 3 at this time. Patient is A&Ox3, following all commands. Placed on CM and is found to be in NSR with HR 60's. BP is 160/84 on transfer, afebrile and in no resp distress. O2 sat is 98% on RA. Patient has dressing to surgical site on right knee that is C/D/I, otherwise skin is intact. Trace edema noted to surgical extremity, coloring is WNL and there is +CMS in all extremities. Patient is oriented to room, call system, staff and plan of care. Patient very cooperative and pleasant. No distress noted at this time, and chest pain is denied. Will cont to monitor.
[2016-09-06 08:00] VITALS: BP 162/68
[2016-09-06 08:13] LABS: ABSOLUTE BASOPHIL COUNT 0 /CUMM (0.0-0.2); ABSOLUTE EOSINOPHIL COUNT 0 /CUMM (0.0-0.7); ABSOLUTE GRANULOCYTE CT 6.8 /CUMM (1.4-6.5); ABSOLUTE LYMPH COUNT 1.1 /CUMM (1.2-3.4); ABSOLUTE MONOCYTE COUNT 0.5 /CUMM (0.10-0.60); BASOPHIL % 0.2 % (0.0-2.0); EOSINOPHIL % 0.1 % (0-5); GRANULOCYTE % 80.3 % (42.2-75.2); HEMATOCRIT 32.8 % (37-47); MEAN CORPUSCULAR HGB CONC 32.8 G/DL (33.0-37.0); MEAN CORPUSCULAR VOLUME 82.6 FL (81.0-99.0); MEAN PLATELET VOLUME 9.2 FL (7.4-10.4); PLATELET COUNT 180 /CUMM (130-400); RBC DISTRIBUTION WIDTH 15.5 % (11.5-14.5); RED BLOOD CELL CT 3.97 /CUMM (4.20-5.40); WHITE BLOOD CELL COUNT 8.5 /CUMM (4.8-10.8)
--- NOTE | 2016-09-06 10:13 | PN- Orthopedic ---
Subjective Subjective: Patient with mild to moderate knee pain that is controlled with pain medication. She denies any fever or flulike illness, no chest pain or shortness of breath Objective Vital Signs and I&Os Vital Signs Date Time Temp Pulse Resp B/P B/P Pulse O2 O2 Flow FiO2 Mean Ox Delivery Rate 09/07 799 97 Room Air Room Air 09/06 08 97.9 68 20 162/68 97 Room Air Room Air 09/06 0315 98.4 64 20 160/84 99 Room Air 09/06 0225 156/74 09/06 0045 164/72 09/05 2324 65 190/82 09/05 2308 190/82 09/05 2243 98.0 65 18 200/88 95 09/05 2221 65 198/82 09/05 1715 152/82 / 1431 98.7 71 18 174/80 93 Room Air 09/05 1412 70 174/80 09/05 1238 68 150/70 Intake & Output 09/06 1600 09/06 0809/06 0000 / 1600 09/05 0800 / 0000 Intake Total 240 480 920 300 400 Output Total 700 675 625 Balance -460 480 245 -325 400 Intake, IV 20 Intake, Oral 240 480 900 300 400 Number 0 Bowel Movements Output, Urine 700 675 625 Physical Exam: Well-developed well-nourished no apparent distress. HEENT: Atraumatic, extraocular motion intact Neck: Supple, no lymphadenopathy Respiratory: No respiratory distress Extremities: No edema RIGHT lower extremity dressing in place, Incision line is clean dry and intact. No signs of infection. Moderate joint effusion Range of motion is 0-60. ALPS [address] place Neurovascularly intact distally Bilateral calves are supple, nontender. Neuro: Alert and oriented x3 Psych: Mood affect normal, normal memory normal judgment. Skin: Warm and dry, no rash on exposed skin Results Last 48 Hours of Labs: Laboratory Tests 09/06 09/06 0655 0100 Chemistry Sodium (137 - 145 mmol/L) 135 L 135 L Potassium (3.5 - 5.1 mmol/L) 3.0 L 3.1 L Chloride (98 - 107 mmol/L) 92 L 92 L Carbon Dioxide (22 - 30 mmol/L) 31 H 30 Anion Gap (5 - 16) 12 13 BUN (7 - 17 mg/dL) 17 17 Creatinine (0.5 - 1.0 mg/dL) 1.0 1.0 Estimated GFR (>60 ml/min) 56 L 56 L BUN/Creatinine Ratio (7 - 25 %) 17.0 17.0 Magnesium (1.6 - 2.3 mg/dL) 1.6 1.6 Troponin I (< 0.11 ng/ml) 0.14 *H 0.19 *H Triglycerides (<150 mg/dL) 82 Cholesterol (<200 MG/DL) 189 LDL Cholesterol, Calc (65 - 129 mg/dL) 107 HDL Cholesterol (40 - 60 mg/dL) 66 H Cholesterol/HDL Ratio (0.00 - 4.23 %) 3 TSH (0.270 - 4.200 uIU/mL) 3.190 Free T4 (0.78 - 2.44 ng/dL) 1.32 Hematology CBC w Diff NO MAN DIFF REQ WBC (4.8 - 10.8 /CUMM) 8.5 RBC (4.20 - 5.40 /CUMM) 3.97 L Hgb (12.0 - 16.0 G/DL) 10.7 L Hct (37 - 47 %) 32.8 L MCV (81.0 - 99.0 FL) 82.6 MCH (27.0 - 31.0 PG) 27.0 RDW (11.5 - 14.5 %) 15.5 H Plt Count (130 - 400 /CUMM) 180 MPV (7.4 - 10.4 FL) 9.2 Gran % (42.2 - 75.2 %) 80.3 H Lymphocytes % (20.5 - 51.1 %) 13.5 L Monocytes % (1.7 - 9.3 %) 5.9 Eosinophils % (0 - 5 %) 0.1 Basophils % (0.0 - 2.0 %) 0.2 Absolute Granulocytes (1.4 - 6.5 /CUMM) 6.8 H Absolute Lymphocytes (1.2 - 3.4 /CUMM) 1.1 L Absolute Monocytes (0.10 - 0.60 /CUMM) 0.5 Absolute Eosinophils (0.0 - 0.7 /CUMM) 0 Absolute Basophils (0.0 - 0.2 /CUMM) 0 PUBS MCHC (33.0 - 37.0 G/DL) 32.8 L 06/07 0640 Chemistry Sodium (137 - 145 mmol/L) 135 L Potassium (3.5 - 5.1 mmol/L) 3.5 Chloride (98 - 107 mmol/L) 93 L Carbon Dioxide (22 - 30 mmol/L) 31 H Anion Gap (5 - 16) 11 BUN (7 - 17 mg/dL) 15 Creatinine (0.5 - 1.0 mg/dL) 0.9 Estimated GFR (>60 ml/min) > 60 BUN/Creatinine Ratio (7 - 25 %) 16.7 Magnesium (1.6 - 2.3 mg/dL) 1.4 L Hematology CBC w Diff NO MAN DIFF REQ WBC (4.8 - 10.8 /CUMM) 9.6 RBC (4.20 - 5.40 /CUMM) 4.01 L Hgb (12.0 - 16.0 G/DL) 10.9 L Hct (37 - 47 %) 33.0 L MCV (81.0 - 99.0 FL) 82.3 MCH (27.0 - 31.0 PG) 27.1 RDW (11.5 - 14.5 %) 15.3 H Plt Count (130 - 400 /CUMM) 180 MPV (7.4 - 10.4 FL) 9.5 Gran % (42.2 - 75.2 %) 82.0 H Lymphocytes % (20.5 - 51.1 %) 9.6 L Monocytes % (1.7 - 9.3 %) 8.4 Eosinophils % (0 - 5 %) 0 Basophils % (0.0 - 2.0 %) 0 L Absolute Granulocytes (1.4 - 6.5 /CUMM) 7.9 H Absolute Lymphocytes (1.2 - 3.4 /CUMM) 0.9 L Absolute Monocytes (0.10 - 0.60 /CUMM) 0.8 H Absolute Eosinophils (0.0 - 0.7 /CUMM) 0 Absolute Basophils (0.0 - 0.2 /CUMM) 0 PUBS MCHC (33.0 - 37.0 G/DL) 33.0 Assessment/Plan Assessment/Plan Postop day #3 status post right total knee arthroplasty Orthopedically stable for discharge however her postoperative course has been complicated medically, by hypotension, bradycardia and then hypertension with slightly elevated troponin. Medicine consult appreciated, serial troponins, EKG , echocardiogram pending, cardiology consult pending Eliquis for DVt prophylaxsis Out of bed with physical therapy, encourage knee range of motion alps Pain medication as needed Daily dressing changes Core Measures/Miscellaneous Venous Thromboembolism VTE Risk Factors: Age > 40, Surgery VTE Contraindications: No Contraindications VTE Diagnosis: No VTE Type: NONE VTE Confirmed by (Test): NONE Beta Socorro Is Beta Socorro a Home Med? No Antibiotics Is Patient on Antibiotics? Yes If Yes: prophylaxis
--- NOTE | 2016-09-06 12:42 | PN- Housestaff ---
See Addendum Subjective Follow-up For: Hypertensive urgency S/P knee replacement. Subjective: Patient seen and examined at bedside. She is relaxing comfortably on bed with in the room. Denies any chest pain, palpitation, vision changes, decreased urinary output, no vomiting abdominal pain, focal neurological deficit or dysuria. Acute overnight event of elevated blood pressure and elevated troponins noted. Review of Systems Constitutional: Reports: no symptoms. Objective Last 24 Hrs of Vital Signs/I&O Vital Signs Date Time Temp Pulse Resp B/P B/P Pulse O2 O2 Flow FiO2 Mean Ox Delivery Rate 09/07 799 97 Room Air Room Air 09/06 08 97.9 68 20 162/68 97 Room Air Room Air 09/06 0315 98.4 64 20 160/84 99 Room Air 09/06 0225 156/74 09/06 0045 164/72 09/05 2324 65 190/82 / 2308 190/82 /07 2243 98.0 65 18 200/88 95 /07 2221 65 198/82 /07 1715 152/82 06/07 1431 98.7 71 18 174/80 93 Room Air 09/05 1412 70 174/80 Intake & Output / 1600 06/08 0800 /08 0000 Intake Total 240 480 Output Total 700 Balance -460 480 Intake, Oral 240 480 Output, Urine 700 Physical Exam General Appearance: Alert, Oriented X3, Cooperative, obese HEENT: Atraumatic, PERRLA, EOMI Neck: Supple, No JVD Lymphatic: Cervical nl Cardiovascular: Regular Rate, Normal S1, Normal S2, No Murmurs Lungs: Clear to Auscultation, Normal Air Movement Abdomen: Normal Bowel Sounds, Soft, No Tenderness Neurological: Normal Speech, Sensation Intact Assessment/Plan Assessment: This is a 61 years old lady with past medical history significant for hypertension, migraine, depression, GERD who is status post right total knee replacement on September 03 and we were consulted to address her uncontrolled blood pressure. One day post procedure on September 04 the patient was dizzy and was found to be hypotensive with systolic of 90 because of which he received bolus IV fluids and her blood pressure medications were put on hold. Following day, pt had hypertensive urgency and had positive troponins. She was transferred to ICU ( Tele hold) for further management. #Hypertensive Urgency Asymptomatic with no clinical or laboratory finding of organdamage. Highest reported BP 200/88, requiring one amlodipine 5mg and restarting of hctz/triam 50/70, BP . Multifactorial, posssible 2/2 to pain from recent knee replacement and also cessation of BP med with conncurent IV blous on previous days due to hypotension. Current BP average 162/68 . Will continue BP monitoring and continue the triam/hct. #Elevated Troponin Trended down with EKG unremarkable for any acute ischemic changes, pt does not complain of chest pain or shortness of breath, ACS very unlikely. The elevated trops was most likely due to demand supply mismatch. #S/P Knee replacement POD #2 Requires atleast 4 weeks of anticoagulation for DVT PPX, currently in apixaban 2.5 mg bid. Will continue pain management, and await further surgery plan. Pt will be eveluated by PT and will work on disposition on [facility] to go home with PT or STR. #History of Depression Continue home dose Venlafaxaine. Problem List: 1. Elevated troponin 2. Hypertension Pain Ratin Pain Location: knee Pain Goal: Pain 4 or less Pain Plan: per pain pathway Tomorrow's Labs & Rationales: BEP CBC
--- NOTE | 2016-09-06 13:07 | NUR ---
PHYSICAL THERAPY: ATTEMPTED TO SEE Pt EARLY THIS P.M. FOR 1ST P.T. TREATMENT. Pt REFUSING P.T. WITH MULTIPLE EXCUSES STATING "I HAVE ALREADY WALKED WITH THE NURSE, I WAS IN THE CHAIR ALL MORNING, I KNOW ALL MY EXERCISES INCLUDING QUAD SETS, STRAIGHT LEG RAISES, ANKLE PUMPS, KICKS, MARCHES AND HAVE DONE THEM MULTIPLE TIMES TODAY" WITH EDUCATION AND ENCOURAGEMENT, Pt CONTINUES TO REFUSE SHE IS BACK TO BED, RESTING, AND EATING LUNCH. WILL F/U APPROPRIATE.
[2016-09-06 16:00] VITALS: BP 130/72
--- NOTE | 2016-09-06 17:44 | Cons- Cardiology ---
General Information and HPI Consulting Request Date of Consult: 09/06/16 Requested By: JJ JANSEN MD Reason for Consult: Positive troponin s/p knee replacement Source of Information: patient, old records Exam Limitations: no limitations History of Present Illness: The patient is a 61-year-old female had a total knee replacement 3 days ago. Subsequently she had an episode of hypotension with blood pressures down to 70 when she took her first walk after the surgery and after that has become moderately hypertensive. A troponin was done and shows 0.19, repeat 0.14, repeat 0.08. EKG has only shown some PACs but no acute ST-T wave abnormalities. The patient has not had any chest pains. Currently her blood pressures are running in the 160s over 80s. She has received some amlodipine only for blood pressure control at this point. At home she was only on a diuretic for blood pressure control and states her blood pressures were good. The patient denies any underlying heart disease. She does not give a history of exertional chest pain or shortness of breath. Right now she is feeling fine and wants to go home. Allergies/Medications Allergies: Coded Allergies: clarithromycin (From BIAXIN) (Intermediate, ITCH 04/11/16) Home Med List: Apixaban (Eliquis) 2.5 MG TABLET 1 TAB PO BID ANTICOAGULATION Docusate Sodium (Colace) 100 MG CAPSULE 1 CAP PO BID CONSITPATION DISCONTINUE USE IF YOU DEVELOP LOOSE STOOL OR DIARRHEA Hydromorphone HCl (Dilaudid) 2 MG TABLET 1-2 TAB PO Q4-6 PRN PAIN Morphine Sulfate (Ms Contin) 15 MG TABLET.ER 1 TAB PO BID PAIN Oxybutynin Chloride (Oxybutynin Chloride ER) 10 MG TAB.ER.24 1 TAB PO DAILY INCONTINENCE (Reported) Pantoprazole Sodium (Protonix) 40 MG TABLET.DR 1 TAB PO DAILY GI (Reported) Polyethylene Glycol 3350 (Miralax) 17 GRAM POWD.PACK 1 PAC PO DAILY CONSTIPATION dissolve in water, DISCONTINUE USE IF YOU DEVELOP LOOSE STOOL OR DIARRHEA Topiramate (Topamax) 100 MG TABLET 1 TAB PO DAILY MIGRAINES (Reported) Triamterene/Hydrochlorothiazid (Triamterene-Hctz 75-50 MG Tab) 75 MG-50 MG TABLET 1 TAB PO DAILY BP (Reported) Venlafaxine HCl (Venlafaxine HCl ER) 225 MG TAB.ER.24 1 TAB PO DAILY DEPRESSION (Reported) Current Medications: Current Medications Sig/Caroline Start time Last Medication Dose Route Stop Time Status Admin Amlodipine Besylate 5 MG ONCE ONE 09/05 2330 DC 09/05 PO 09/05 2331 2324 Apixaban 2.5 MG BID 09/03 2200 AC 09/06 PO 1000 Aspirin 81 MG DAILY 09/06 1000 AC 09/06 PO 1001 Aspirin 325 MG ONCE ONE 09/06 0245 DC 09/06 PO 09/06 0246 0513 Docusate Sodium 100 MG BID 09/03 2200 AC 09/06 PO 1000 Hydromorphone HCl 2 MG Q4P PRN 09/03 1600 AC 09/06 PO 0219 Hydromorphone HCl 4 MG Q4P PRN / 1600 AC 09/06 PO 1212 Magnesium Hydroxide 30 ML ONE ONE 09/06 1015 DC 09/06 PO 09/06 1016 1018 Magnesium Oxide 400 MG ONE ONE 09/06 0900 DC 09/06 PO 09/06 0901 1001 Magnesium Oxide 400 MG ONE ONE 09/06 0215 DC 09/06 PO 09/06 0216 0216 Morphine Sulfate 2 MG Q2P PRN 09/03 1600 AC IV Omeprazole 40 MG DAILY AC 09/06 0957 AC 09/06 PO 1000 Ondansetron HCl 4 MG Q6P PRN 09/03 1600 AC IV Oxybutynin Chloride 5 MG BID 09/03 2200 AC 09/06 PO 1000 Pantoprazole Sodium 40 MG DAILY 09/04 1000 DC 09/05 IV 1041 Polyethylene Glycol 17 GM DAILY 09/04 1000 AC PO Potassium Chloride 80 MEQ ONCE ONE 09/06 0900 DC 09/06 PO 09/06 0901 1001 Potassium Chloride 60 MEQ ONCE ONE 09/06 0215 DC 09/06 PO 09/06 0216 0215 Promethazine HCl 12.5 MG Q6P PRN 09/03 1600 AC IV 09/10 1114 Topiramate 100 MG DAILY 09/04 1000 AC 09/06 PO 1000 Triamterene/HCTZ 2 CAP DAILY 09/05 1000 AC 09/06 PO 1000 Venlafaxine HCl 225 MG 0800 09/04 0800 AC 09/06 PO 0812 Review of Systems Review of Systems: She has no complaints in the review of systems at this time Past History Medical History Blood Transfusion Hx: No Neurological: NONE EENT: NONE Cardiovascular: hypertension, IVC FILTER Respiratory: obstructive sleep apnea, pulmonary embolism Gastrointestinal: peptic ulcer disease, DESMOND GASTRIC BYPASS Hepatic: NON ETOH FATTY LIVER Renal: urinary incontinence Musculoskeletal: osteoarthritis Psychiatric: depression Endocrine: hyperparathyroidism Blood Disorders: NONE Cancer(s): NONE BOOKER/Reproductive: UTERINE ABLATION Surgical History Surgical History: non-contributory, cholecystectomy, knee replacement, GASTRIC BYPASS Psychosocial History Where Do You Live? Home Services at Home: None Smoking Status: Former Smoker Exam & Diagnostic Data Vital Signs and I&O Vital Signs Date Time Temp Pulse Resp B/P B/P Pulse O2 O2 Flow FiO2 Mean Ox Delivery Rate 09/07 799 97 Room Air Room Air 09/06 08 97.9 68 20 162/68 97 Room Air Room Air 09/06 0315 98.4 64 20 160/84 99 Room Air 09/06 0225 156/74 09/06 0045 164/72 09/05 2324 65 190/82 09/05 2308 190/82 09/05 2243 98.0 65 18 200/88 95 07 2221 65 198/82 Intake & Output 09/06 1600 09/06 0800 09/06 0000 09/05 1600 09/05 0800 09/05 0000 Intake Total 600 240 480 920 300 400 Output Total 450 700 675 625 Balance 150 -460 480 245 -325 400 Intake, IV 20 Intake, Oral 600 240 480 900 300 400 Number 0 Bowel Movements Output, Urine 450 700 675 625 Physical Exam: This is an obese middle-aged female in no acute distress HEENT exam is normal Neck veins not distended Chest is clear Heart reveals regular rhythm and no murmurs, gallops or rubs Extremities right knee in a knee brace otherwise no edema, good pulses Labs/Marcus Results: Laboratory Tests 09/06 09/06 09/06 1300 0655 0100 Chemistry Sodium (137 - 145 mmol/L) 135 L 135 L Potassium (3.5 - 5.1 mmol/L) 3.0 L 3.1 L Chloride (98 - 107 mmol/L) 92 L 92 L Carbon Dioxide (22 - 30 mmol/L) 31 H 30 Anion Gap (5 - 16) 12 13 BUN (7 - 17 mg/dL) 17 17 Creatinine (0.5 - 1.0 mg/dL) 1.0 1.0 Estimated GFR (>60 ml/min) 56 L 56 L BUN/Creatinine Ratio (7 - 25 %) 17.0 17.0 Magnesium (1.6 - 2.3 mg/dL) 1.6 1.6 Troponin I (< 0.11 ng/ml) 0.08 0.14 *H 0.19 *H Triglycerides (<150 mg/dL) 82 Cholesterol (<200 MG/DL) 189 LDL Cholesterol, Calc (65 - 129 mg/dL) 107 HDL Cholesterol (40 - 60 mg/dL) 66 H Cholesterol/HDL Ratio (0.00 - 4.23 %) 3 TSH (0.270 - 4.200 uIU/mL) 3.190 Free T4 (0.78 - 2.44 ng/dL) 1.32 Hematology CBC w Diff NO MAN DIFF REQ WBC (4.8 - 10.8 /CUMM) 8.5 RBC (4.20 - 5.40 /CUMM) 3.97 L Hgb (12.0 - 16.0 G/DL) 10.7 L Hct (37 - 47 %) 32.8 L MCV (81.0 - 99.0 FL) 82.6 MCH (27.0 - 31.0 PG) 27.0 RDW (11.5 - 14.5 %) 15.5 H Plt Count (130 - 400 /CUMM) 180 MPV (7.4 - 10.4 FL) 9.2 Gran % (42.2 - 75.2 %) 80.3 H Lymphocytes % (20.5 - 51.1 %) 13.5 L Monocytes % (1.7 - 9.3 %) 5.9 Eosinophils % (0 - 5 %) 0.1 Basophils % (0.0 - 2.0 %) 0.2 Absolute Granulocytes (1.4 - 6.5 /CUMM) 6.8 H Absolute Lymphocytes (1.2 - 3.4 /CUMM) 1.1 L Absolute Monocytes (0.10 - 0.60 /CUMM) 0.5 Absolute Eosinophils (0.0 - 0.7 /CUMM) 0 Absolute Basophils (0.0 - 0.2 /CUMM) 0 PUBS MCHC (33.0 - 37.0 G/DL) 32.8 L 06/07 0640 Chemistry Sodium (137 - 145 mmol/L) 135 L Potassium (3.5 - 5.1 mmol/L) 3.5 Chloride (98 - 107 mmol/L) 93 L Carbon Dioxide (22 - 30 mmol/L) 31 H Anion Gap (5 - 16) 11 BUN (7 - 17 mg/dL) 15 Creatinine (0.5 - 1.0 mg/dL) 0.9 Estimated GFR (>60 ml/min) > 60 BUN/Creatinine Ratio (7 - 25 %) 16.7 Magnesium (1.6 - 2.3 mg/dL) 1.4 L Hematology CBC w Diff NO MAN DIFF REQ WBC (4.8 - 10.8 /CUMM) 9.6 RBC (4.20 - 5.40 /CUMM) 4.01 L Hgb (12.0 - 16.0 G/DL) 10.9 L Hct (37 - 47 %) 33.0 L MCV (81.0 - 99.0 FL) 82.3 MCH (27.0 - 31.0 PG) 27.1 RDW (11.5 - 14.5 %) 15.3 H Plt Count (130 - 400 /CUMM) 180 MPV (7.4 - 10.4 FL) 9.5 Gran % (42.2 - 75.2 %) 82.0 H Lymphocytes % (20.5 - 51.1 %) 9.6 L Monocytes % (1.7 - 9.3 %) 8.4 Eosinophils % (0 - 5 %) 0 Basophils % (0.0 - 2.0 %) 0 L Absolute Granulocytes (1.4 - 6.5 /CUMM) 7.9 H Absolute Lymphocytes (1.2 - 3.4 /CUMM) 0.9 L Absolute Monocytes (0.10 - 0.60 /CUMM) 0.8 H Absolute Eosinophils (0.0 - 0.7 /CUMM) 0 Absolute Basophils (0.0 - 0.2 /CUMM) 0 PUBS MCHC (33.0 - 37.0 G/DL) 33.0 Diagnostic Data EKG Results EKG on admission showed sinus rhythm at a rate of 52 with some nonspecific lateral T-wave changes. There've been 3 EKGs done today. They all have shown sinus rhythm with multiple PACs and some nonspecific T changes with no acute changes. CXR Results Not done Other Results CONCLUSIONS Moderate concentric left ventricular hypertrophy. Left ventricular ejection fraction is estimated at >65 %. Abnormal relaxation filling pattern of the left ventricle for age (stage 1 diastolic dysfunction). Left atrial size at the upper limits of normal. Mild thickening/calcification of the mitral valve leaflets. Mild mitral annular calcification. Trace mitral regurgitation. Focal thickening of the aortic valve cusps. No aortic stenosis. Right ventricular systolic pressure estimated to be mildlyelevated at 35-40 mmHg. King Paul M.D. (Electronically Signed) Final Date: 06 September 2016 19:29 Assessment/Plan Assessment/Plan This patient has developed a minor troponin leak, probably demand ischemia based on an episode of hypotension, which was probably precipitated by exertion after a knee replacement surgery. Subsequently she became hypertensive which she states is because she was upset over being incontinent in bed. Her EKG has not shown any acute changes aside from some PACs. Right now she is fairly stable with a blood pressure in the 160 range. Her troponins have decreased to the normal range. I recommend continuing to observe her overnight. I will review her echocardiogram which was just done and append to this note. (The echo shows LVH with good left ventricular systolic function and mildly elevated pulmonary artery pressure) Assuming it does not show any significant abnormalities she most likely will be able to go home tomorrow. I would recommend that she have a stress test as an outpatient just because of the troponin rise. This most likely would need to be done as a pharmacologic nuclear stress test and can be scheduled through her primary care physician. Copies To: TORY SAM,GALI JANSEN MD,JJ Consult Acknowledgment - Thank you for your consult request.
--- NOTE | 2016-09-06 19:30 | ECHOCARDIOGRAM REPORT ---
LES DURÁN Age: 61 : 1955 Gender: F Exam Date: 09/06/2016 17:18 Exam Location: [facility] Ht (in): 65 Wt (lb): 241 BSA: 2.29 BP: 162 / 68 Ordering Physician: ELLIE PERDUE MD Referring Physician: ELLIE PERDUE MD Technologist: Angie Solis [facility] Room Number: 111 Indications: HYPERTENSION Rhythm: Sinus Technical Quality: Fair FINDINGS Left Ventricle Normal size left ventricle. Moderate concentric left ventricular hypertrophy. Left ventricular ejection fraction is estimated at > 65 %. No obvious regional wall motion abnormalities. Abnormal relaxation filling pattern of the left ventricle for age (stage 1 diastolic dysfunction). Right Ventricle The right ventricle is normal in size and function. Right Atrium The right atrium is normal in size. Left Atrium Left atrial size at the upper limits of normal. Mitral Valve Mild thickening/calcification of the mitral valve leaflets. Mild mitral annular calcification. Trace mitral regurgitation. Aortic Valve Focal thickening of the aortic valve cusps. No aortic stenosis. No aortic regurgitation. Tricuspid Valve The tricuspid valve is normal in structure and function. There istrace tricuspid regurgitation. Right ventricular systolic pressure estimated to be mildlyelevated at 35-40 mmHg. Pulmonic Valve Structurally normal pulmonic valve. Trace pulmonic regurgitation. Pericardium Normal pericardium without effusion. No pleural effusion. Great Vessels Normal aortic root dimension. The aortic arch and great vessels are well seen and are normal. CONCLUSIONS Moderate concentric left ventricular hypertrophy. Left ventricular ejection fraction is estimated at >65 %. Abnormal relaxation filling pattern of the left ventricle for age (stage 1 diastolic dysfunction). Left atrial size at the upper limits of normal. Mild thickening/calcification of the mitral valve leaflets. Mild mitral annular calcification. Trace mitral regurgitation. Focal thickening of the aortic valve cusps. No aortic stenosis. Right ventricular systolic pressure estimated to be mildlyelevated at 35-40 mmHg. King Paul M.D. (Electronically Signed) Final Date: 06 September 2016 19:29 MEASUREMENTS (Male / Female) Normal Values 2D ECHO LV Diastolic Diameter PLAX 4.1 cm 4.2 - 5.9 / 3.9 - 5.3 cm LV Systolic Diameter PLAX 2.4 cm 2.1 - 4.0 cm LV Fractional Shortening PLAX 41.5 % 25 - 46 % LV Ejection Fraction 2D Teich 72.8 % IVS Diastolic Thickness 1.4 cm LVPW Diastolic Thickness 1.4 cm LV Relative Wall Thickness 0.7 RV Internal Dim ED PLAX 3.2 cm 1.9 - 3.8 cm LVOT Diameter 1.9 cm Aortic Root Diameter 2.5 cm LA Systolic Diameter LX 4.5 cm 3.0 - 4.0 / 2.7 - 3.8 cm LA Volume 50.0 cm 18 - 58 / 22 - 52 cm Ascending Aorta Diameter 3.1 cm DOPPLER AV Peak Velocity 169.0 cm/s AV Peak Gradient 11.4 mmHg AV Mean Velocity 113.0 cm/s AV Mean Gradient 6.0 mmHg AV Velocity Time Integral 34.3 cm LVOT Peak Velocity 98.5 cm/s LVOT Peak Gradient 3.9 mmHg LVOT Mean Velocity 69.8 cm/s LVOT Mean Gradient 2.0 mmHg LVOT Velocity Time Integral 25.2 cm LVOT Stroke Volume 71.4 cm AV Area Cont Eq vti 2.1 cm AV Area Cont Eq pk 1.7 cm MV Peak Velocity 95.1 cm/s MV Peak Gradient 3.6 mmHg MV Mean Velocity 52.6 cm/s MV Mean Gradient 1.0 mmHg Mitral E Point Velocity 57.5 cm/s Mitral A Point Velocity 73.3 cm/s Mitral E to A Ratio 0.8 MV PHT Velocity 84.4 cm/s MV Deceleration Prowers 270.0 cm/s MV Pressure Half Time 93.8 ms MV Area PHT 2.3 cm MV Deceleration Time 388.0 ms TR Peak Velocity 282.0 cm/s TR Peak Gradient 31.8 mmHg Right Atrial Pressure 5.0 mmHg Pulmonary Artery Systolic Pressu 36.8 mmHg Right Ventricular Systolic Press 36.8 mmHg PV Peak Velocity 113.0 cm/s PV Peak Gradient 5.1 mmHg PV Mean Velocity 76.0 cm/s PV Mean Gradient 3.0 mmHg PV Velocity Time Integral 24.3 cm LV E' Lateral Velocity 7.2 cm/s Mitral E to LV E' Lateral Ratio 7.9 LV E' Septal Velocity 5.9 cm/s Mitral E to LV E' Septal Ratio 9.8
--- NOTE | 2016-09-07 05:48 | PN- Orthopedic ---
Subjective Subjective: The patient was seen this morning postoperatively day #3. She reports that the operative leg is slightly sore but she's other lites relatively comfortable with current pain regiment. She has no other complaints at the current time and denies any chest pain, palpitations, or difficulty breathing. Objective Vital Signs and I&Os Vital Signs Date Time Temp Pulse Resp B/P B/P Pulse O2 O2 Flow FiO2 Mean Ox Delivery Rate 09/06 1600 97.6 76 18 130/72 95 Room Air / 0800 97 Room Air Room Air / 0800 97.9 68 20 162/68 97 Room Air Room Air Intake & Output / 0800 06/09 0000 06/08 1600 / 0800 06/ 0000 06/07 1600 Intake Total 380 600 240 480 920 Output Total 450 450 700 675 Balance -70 150 -460 480 245 Intake, IV 20 20 Intake, Oral 360 600 240 480 900 Number 0 Bowel Movements Output, Urine 450 450 700 675 Physical Exam: Gen.: Alert and in no obvious distress Skin: Warm and dry Cardiac: S1-S2 regular Pulmonary: Bilateral breath sounds are equal and slightly decreased at bases Extremities: Bilateral lower extremities are warm without calf tenderness or significant edema. Gross motor and sensory are intact. Right knee surgical incision is clean, dry, and intact without signs of infection. Assessment/Plan Assessment/Plan Assessment: 61-year-old female status post right total knee arthroplasty postoperative day #3. From an orthopedic standpoint the patient is progressing as expected, her pain is under adequate control, and she is ambulating well with physical therapy. From a cardiac standpoint patient remains asystematic at the current time answer troponins have trended back down to baseline. Plan: Continue to work with physical therapy PRN pain medications GI and DVT prophylaxis Follow-up cardiology's final recommendations Discharge later today if okay with cardiology. Core Measures/Miscellaneous Venous Thromboembolism VTE Risk Factors: Age > 40, Surgery VTE Contraindications: No Contraindications VTE Diagnosis: No VTE Type: NONE VTE Confirmed by (Test): NONE Beta Socorro Is Beta Socorro a Home Med? No Antibiotics Is Patient on Antibiotics? No
--- NOTE | 2016-09-07 07:19 | PN- Housestaff ---
NELLY SAM,SLAVA 09/07/16 0719: Subjective Follow-up For: hYPERTENSIVE URGENCY Subjective: Patient seen and examined at bedside. She is relaxing comfortably on a recliner. Denies any chest pain, palpitation, vision changes, decreased urinary output, no vomiting abdominal pain, focal neurological deficit or dysuria. No Acute overnight event by nursing staff. Review of Systems Constitutional: Reports: no symptoms. Objective Last 24 Hrs of Vital Signs/I&O Vital Signs Date Time Temp Pulse Resp B/P B/P Pulse O2 O2 Flow FiO2 Mean Ox Delivery Rate 09/08 799 97.8 76 20 138/74 95 Room Air 09/07 08 95 Room Air 09/06 1600 97.6 76 18 130/72 95 Room Air Intake & Output 09/07 1600 09/07 0000 Intake Total 200 380 Output Total 900 450 Balance -700 -70 Intake, IV 20 Intake, Oral 200 360 Output, Urine 900 450 Patient 109.316 kg Weight Physical Exam General Appearance: Alert, Oriented X3, Cooperative Other Physical Findings: HEENT: Atraumatic, PERRLA, EOMI Neck: Supple, No JVD Lymphatic: Cervical nl Cardiovascular: Regular Rate, Normal S1, Normal S2, No Murmurs Lungs: Clear to Auscultation, Normal Air Movement Abdomen: Normal Bowel Sounds, Soft, No Tenderness Neurological: Normal Speech, Sensation Intact Current Medications: Current Medications Sig/Caroline Start time Last Medication Dose Route Stop Time Status Admin Apixaban 2.5 MG BID 09/03 2199 AC 09/07 PO 0847 Aspirin 81 MG DAILY 09/06 1000 AC 09/07 PO 0846 Docusate Sodium 100 MG BID 09/03 2199 AC 09/07 PO 0846 Hydromorphone HCl 2 MG Q4P PRN 09/03 1600 AC 09/06 PO 0219 Hydromorphone HCl 4 MG Q4P PRN 09/03 1600 AC 09/07 PO 0741 Magnesium Hydroxide 30 ML ONE ONE 09/07 844 DC 09/07 PO 09/07 0846 0846 Morphine Sulfate 2 MG Q2P PRN 09/03 1600 AC IV Omeprazole 40 MG DAILY AC 09/06 956 AC 09/07 PO 0640 Ondansetron HCl 4 MG Q6P PRN 09/03 1600 AC IV Oxybutynin Chloride 5 MG BID 09/03 2199 AC 09/07 PO 0845 Polyethylene Glycol 17 GM DAILY 09/04 1000 AC PO Promethazine HCl 12.5 MG Q6P PRN 09/03 1600 AC IV 09/10 1114 Topiramate 100 MG DAILY 09/04 1000 AC 09/07 PO 0845 Triamterene/HCTZ 2 CAP DAILY 09/05 1000 AC 09/07 PO 0846 Venlafaxine HCl 225 MG 0800 09/04 0800 AC 09/07 PO 0741 Last 24 Hrs of Lab/Marcus Results Last 24 Hrs of Labs/Mics: Laboratory Tests 09/07/16 0600: Anion Gap 8, Estimated GFR 56 L, Glucose 113 H, Calcium 9.4, Phosphorus 2.7, Magnesium 1.9, Total Bilirubin 0.7, AST 32, ALT 51, Albumin 3.5 09/06/16 1300: Troponin I 0.08 Assessment/Plan Assessment: This is a 61 years old lady with past medical history significant for hypertension, migraine, depression, GERD who is status post right total knee replacement on September 03 and we were consulted to address her uncontrolled blood pressure. One day post procedure on September 04 the patient was dizzy and was found to be hypotensive with systolic of 90 because of which he received bolus IV fluids and her blood pressure medications were put on hold. Following day, pt had hypertensive urgency and had positive troponins. She was transferred to ICU ( Tele hold) for further management. Assesment and Plan Pt stable with no reported Hypertensive urgency episode in 24 hr period. Cleared by cardiology with outpatient follow for stress test to be arranged by PCP. Surgery cleared patient for discharge with home PT. Problem List: 1. Unilateral primary osteoarthritis, right knee 2. Elevated troponin Pain Ratin Pain Location: knee Pain Goal: Remain pain free Pain Plan: per pathway Tomorrow's Labs & Rationales: none-discharge GIORGI,IVETTE 09/07/16 1053: Attending MD Review Statement Attending Statement Attending MD Statement: examined this patient, discuss w/resident/PA/FUNNEL SETTER, agreed w/resident/PA/FUNNEL SETTER, discussed with family, reviewed EMR data (avail), discussed with nursing, discussed with case mgmt, reviewed images, amended to note Attending Assessment/Plan: patient transferred to tele for dizziness, hypotension, serial cardiac enzymes trended down, on eliquis and aspirin, cardio consulted. BP better controlled , if bp increases resume home meds, patient hemodynamically stable with no chest pain. d/wed staff and patient who is in agreement, CARDIOLOGY cleared patient for discharge.
[2016-09-07 08:00] VITALS: BP 138/74
--- NOTE | 2016-09-07 09:37 | PN- Cardiology ---
Subjective Subjective: The patient is feeling well. She is out of bed. There have been no arrhythmias. Her blood pressure is improved. She is back on her usual blood pressure medication. Objective Vital Signs and I&Os Vital Signs Date Time Temp Pulse Resp B/P B/P Pulse O2 O2 Flow FiO2 Mean Ox Delivery Rate 09/07 1599 97.6 76 18 130/72 95 Room Air Intake & Output 09/07 0809/07 0000 09/06 0000 Intake Total 200 380 600 240 480 Output Total 900 450 450 700 Balance -700 -70 150 -460 480 Intake, IV 20 Intake, Oral 200 360 600 240 480 Output, Urine 900 450 450 700 Patient 241 lb Weight Physical Exam: She is in no distress Chest is clear Heart reveals regular rhythm Current Medications: Current Medications Sig/Caroline Start time Last Medication Dose Route Stop Time Status Admin Apixaban 2.5 MG BID 09/03 2199 AC 09/07 PO 0847 Aspirin 81 MG DAILY 09/06 1000 AC 09/07 PO 0846 Docusate Sodium 100 MG BID 09/03 220 AC 09/07 PO 0846 Hydromorphone HCl 2 MG Q4P PRN 09/03 1600 AC 09/06 PO 0219 Hydromorphone HCl 4 MG Q4P PRN 09/03 1600 AC 09/07 PO 0741 Magnesium Hydroxide 30 ML ONE ONE 09/07 0845 DC 09/07 PO 09/07 0846 0846 Magnesium Hydroxide 30 ML ONE ONE 09/06 1015 DC 09/06 PO 09/06 1016 1018 Morphine Sulfate 2 MG Q2P PRN 09/03 1600 AC IV Omeprazole 40 MG DAILY AC 09/06 0957 AC 09/07 PO 0640 Ondansetron HCl 4 MG Q6P PRN 09/03 1600 AC IV Oxybutynin Chloride 5 MG BID 09/03 2200 AC 09/07 PO 0845 Pantoprazole Sodium 40 MG DAILY 09/04 1000 DC 09/05 IV 1041 Polyethylene Glycol 17 GM DAILY 09/04 1000 AC PO Promethazine HCl 12.5 MG Q6P PRN 09/03 1600 AC IV 09/10 1114 Topiramate 100 MG DAILY 09/04 1000 AC 09/07 PO 0845 Triamterene/HCTZ 2 CAP DAILY 09/05 1000 AC 09/07 PO 0846 Venlafaxine HCl 225 MG 0809/04 0800 AC 09/07 PO 0741 Results Last 48 Hrs of Labs/Mics: Laboratory Tests 09/07/16 0600: Anion Gap 8, Estimated GFR 56 L, Glucose 113 H, Calcium 9.4, Phosphorus 2.7, Magnesium 1.9, Total Bilirubin 0.7, AST 32, ALT 51, Albumin 3.5 09/06/16 1300: Troponin I 0.08 09/06/16 0655: Anion Gap 12, Estimated GFR 56 L, BUN/Creatinine Ratio 17.0, Magnesium 1.6, Troponin I 0.14 *H, Triglycerides 82, Cholesterol 189, LDL Cholesterol, Calc 107 , HDL Cholesterol 66 H, Cholesterol/HDL Ratio 3, TSH 3.190, Free T4 1.32, CBC w Diff NO MAN DIFF REQ, RBC 3.97 L, MCV 82.6, MCH 27.0, RDW 15.5 H, MPV 9.2, Gran % 80.3 H, Lymphocytes % 13.5 L, Monocytes % 5.9, Eosinophils % 0.1, Basophils % 0.2, Absolute Granulocytes 6.8 H, Absolute Lymphocytes 1.1 L, Absolute Monocytes 0.5, Absolute Eosinophils 0, Absolute Basophils 0, PUBS MCHC 32.8 L 09/06/16 0100: Anion Gap 13, Estimated GFR 56 L, BUN/Creatinine Ratio 17.0, Magnesium 1.6, Troponin I 0.19 *H Microbiology 09/06 0330 UPPER RESP: Surveillance Culture - COMP Assessment/Plan Assessment/Plan The patient is stable. She can be discharged from a cardiac standpoint. Her echo just showed LVH. Her potassium was a little low and will require some repletion and should be monitored as an outpatient. As noted in the consult she should be considered for stress test as an outpatient which can be coordinated through her primary care physician. Continue telemetry? Not applicable
== END 2016-09-07 11:00 | disposition home health service (06) | DRG 470 ==
LOC: SDA 02:36 → ENRESERV 12:53 → ENTRNSPT 13:23 → EDTRNSPT 13:36 → EDTRNSPTTYP 13:36 → 2NB 13:46 → CMPTRNSPT 13:59 → CRI 09-06 03:35
PROVIDERS: Nurse Practitioner; Physician Assistant; Preventive Medicine Public Health & General Preventive Medicine; ADMIT Orthopaedic Surgery
PROC: 0SRC0JA Replacement of Right Knee Joint with Synthetic Substitute, Uncemented, Open Approach (ICD-10-PCS; principal; 2016-09-03)
PROC: 3E0T3BZ Introduction of Anesthetic Agent into Peripheral Nerves and Plexi, Percutaneous Approach (ICD-10-PCS; 2016-09-03)
DX: M17.11 Unilateral primary osteoarthritis, right knee (principal); I95.81 Postprocedural hypotension; I10 Essential (primary) hypertension; Z87.891 Personal history of nicotine dependence; Z86.711 Personal history of pulmonary embolism; F32.9 Major depressive disorder, single episode, unspecified
CPT/HCPCS: 2NBSP; CCU; 36415; 82436; 87086; 88305; 93005; 93010; 93306; 94799; 97110-GO; 97116-GO; 97161-GP; 97530-GO; C1713; J0131; J0690; J2405; J2550; J2795; J3490; J7042